=== PATIENT | female | born 1985 | race American Indian/Alaskan Native ===

== ENCOUNTER 2020-12-13 03:38 | Emergency (ER) | payer SELFPAY ==
[2020-12-13 04:23] VITALS: BP 143/99
== END 2020-12-13 04:30 | disposition left against medical advice (07) ==
LOC: ED 03:38
DX: Z00.00 Encounter for general adult medical examination without abnormal findings (principal); Z53.21 Procedure and treatment not carried out due to patient leaving prior to being seen by health care provider

== ENCOUNTER 2021-03-03 10:58 | Emergency (ER) | payer SELFPAY | END 2021-03-03 11:00 | disposition left against medical advice (07) | LOC: ED 10:58 | DX: R10.9 Unspecified abdominal pain (principal); Z53.21 Procedure and treatment not carried out due to patient leaving prior to being seen by health care provider ==